=== PATIENT | male | born 1950 | race Caucasian/White ===

== ENCOUNTER 2016-06-13 02:32 | Emergency (ER) | payer MEDICARE, OTHER ==
[~2016-06-13] VITALS: Ht 188 cm; Wt 107.9 kg
[2016-06-13 02:34] VITALS: BP 143/78
== END 2016-06-13 04:38 | disposition home or self-care (01) ==
LOC: EDBD 02:32 → ED 03:42
DX: R31.0 Gross hematuria (principal); N40.1 Benign prostatic hyperplasia with lower urinary tract symptoms; R33.8 Other retention of urine; Z46.6 Encounter for fitting and adjustment of urinary device
CPT/HCPCS: 51702; 99284